=== PATIENT | male | born 1960 | race Caucasian/White ===

== ENCOUNTER 2023-02-08 06:28 | Day surgery (SDC) | payer OTHER, MEDICAID ==
[2023-02-07 11:06] VITALS: BMI 30.2
[2023-02-08] MEDS ORDERED: PROPOFOL 60 ML ONE (09:21)
== END 2023-02-08 09:46 | disposition home or self-care (01) ==
LOC: CSHSDC 06:28
PROVIDERS: ATTEND Internal Medicine Gastroenterology
PROC: 0DBH8ZX Excision of Cecum, Via Natural or Artificial Opening Endoscopic, Diagnostic (ICD-10-PCS; principal; 2023-02-08)
DX: K51.90 Ulcerative colitis, unspecified, without complications (principal); R94.8 Abnormal results of function studies of other organs and systems; C34.90 Malignant neoplasm of unspecified part of unspecified bronchus or lung; R13.19 Other dysphagia; F41.9 Anxiety disorder, unspecified; J44.9 Chronic obstructive pulmonary disease, unspecified; I50.9 Heart failure, unspecified; F32.A Depression, unspecified; I11.0 Hypertensive heart disease with heart failure; E78.00 Pure hypercholesterolemia, unspecified; Z95.810 Presence of automatic (implantable) cardiac defibrillator; Z79.82 Long term (current) use of aspirin; Z88.5 Allergy status to narcotic agent; F17.210 Nicotine dependence, cigarettes, uncomplicated; Z79.899 Other long term (current) drug therapy
CPT/HCPCS: 88305; J2704

== ENCOUNTER 2023-02-11 08:22 | Outpatient (CLI) | payer OTHER, MEDICAID ==
[2023-02-11] MEDS ORDERED: Magnevist 469MG/ML 20 ML VIAL ONE (10:36)
== END 2023-02-11 08:23 | disposition home or self-care (01) ==
LOC: CSHSPEC 08:22
PROVIDERS: ATTEND Internal Medicine Hematology & Oncology
DX: C34.90 Malignant neoplasm of unspecified part of unspecified bronchus or lung (principal); Z95.810 Presence of automatic (implantable) cardiac defibrillator
CPT/HCPCS: 70553; 71046

== ENCOUNTER 2023-08-28 08:24 | Outpatient (CLI) | payer OTHER ==
[2023-08-28] MEDS ORDERED: Sodium Bicarbonate 2.5 MEQ/5 ML SDV ONE (08:41)
[2023-08-28] MEDS ORDERED: Lidocaine 1% PF 5 ML VIAL ONE (08:41)
[2023-08-28 09:12] VITALS: BP 111/77; TEMP 97.5
== END 2023-08-28 08:25 | disposition home or self-care (01) ==
LOC: CSHRAD 08:24
PROVIDERS: ATTEND Physical Medicine & Rehabilitation Pain Medicine
DX: M54.50 Low back pain, unspecified (principal); M54.51 Vertebrogenic low back pain; M47.817 Spondylosis without myelopathy or radiculopathy, lumbosacral region; M47.816 Spondylosis without myelopathy or radiculopathy, lumbar region; Z98.890 Other specified postprocedural states
CPT/HCPCS: 62284; 72100; 72131; 77003

== ENCOUNTER 2023-09-09 | Outpatient (CLI) | payer OTHER, MEDICAID | END 2023-09-09 11:31 | disposition home or self-care (01) | DX: Z04.89 Encounter for examination and observation for other specified reasons (principal); C34.11 Malignant neoplasm of upper lobe, right bronchus or lung ==

== ENCOUNTER 2023-11-15 08:10 | Outpatient (CLI) | payer OTHER, MEDICAID | END 2023-11-15 08:11 | disposition home or self-care (01) | LOC: CSHCT 08:10 | PROVIDERS: ATTEND Internal Medicine Hematology & Oncology | DX: C34.11 Malignant neoplasm of upper lobe, right bronchus or lung (principal); R59.0 Localized enlarged lymph nodes; K20.90 Esophagitis, unspecified without bleeding; J18.9 Pneumonia, unspecified organism | CPT/HCPCS: 71260; 74177; 82565 ==

== ENCOUNTER 2024-02-10 14:27 | Outpatient (CLI) | payer OTHER ==
[~2024-02-10 14:27] MED LIST: Iopamidol 370 76% 100 ML VIAL ONE
== END 2024-02-10 14:28 | disposition home or self-care (01) ==
LOC: CSHCT 14:27
PROVIDERS: ATTEND Internal Medicine Hematology & Oncology
DX: C34.11 Malignant neoplasm of upper lobe, right bronchus or lung (principal); C78.7 Secondary malignant neoplasm of liver and intrahepatic bile duct; E27.8 Other specified disorders of adrenal gland; K21.9 Gastro-esophageal reflux disease without esophagitis; K22.9 Disease of esophagus, unspecified
CPT/HCPCS: 71260; 74177; Q9967